=== PATIENT | female | born 1960 | race Caucasian/White ===

== ENCOUNTER 2018-09-25 14:25 | Emergency (ER) | payer BC ==
--- NOTE | 2018-09-25 15:13 | UC ---
Lower Extremity/Ankle HPI - HPI Summary HPI Summary: 57-year-old woman comes in with a chief complaint of right ankle pain. Earlier today she tripped and fell rolling her right ankle and inversion. Has pain in the lateral aspect and swelling. She has been able to weight-bear but weightbearing does make the pain worse. Rest and not wait bearing decreases the pain. She did take some ibuprofen prior to arrival. No complaint of any other injuries. - History of Current Complaint Chief Complaint: UCLowerExtremity Stated Complaint: ANKLE INJURY Time Seen by Provider: 09/25/18 14:44 Pain Intensity: 3 - Allergies/Home Medications Allergies/Adverse Reactions: Allergies Allergy/AdvReac Type Severity Reaction Status Date / Time pseudoephedrine Allergy Anaphylatic Verified 09/25/18 14:41 [From Sudafed] Shock Sulfa (Sulfonamide Allergy Anaphylatic Verified 09/25/18 14:41 Antibiotics) Shock Home Medications: Home Medications Ibuprofen 400 mg PO Q6HR PRN 09/25/18 [History Confirmed 09/25/18] Lisinopril 10 mg PO DAILY 09/25/18 [History Confirmed 09/25/18] Sertraline* [Zoloft*] 25 mg PO DAILY 09/25/18 [History Confirmed 09/25/18] PMH/Surg Hx/FS Hx/Imm Hx Previously Healthy: Yes Cardiovascular History: Hypertension - Surgical History Surgical History: Yes Surgery Procedure, Year, and Place: L ovary removed 2005 - Family History Known Family History: Positive: Non-Contributory - Social History Alcohol Use: Rare Substance Use Type: None Smoking Status (MU): Current Every Day Smoker Amount Used/How Often: 6-7 cigs/ day Review of Systems All Other Systems Reviewed And Are Negative: Yes Constitutional: Positive: Negative Skin: Positive: Negative Eyes: Positive: Negative ENT: Positive: Negative Respiratory: Positive: Negative Cardiovascular: Positive: Negative Gastrointestinal: Positive: Negative Motor: Positive: Negative Neurovascular: Positive: Negative Musculoskeletal: Positive: Other: - see hpi Neurological: Positive: Negative Psychological: Positive: Negative Is Patient Immunocompromised?: No Physical Exam Triage Information Reviewed: Yes Appearance: Well-Appearing, No Pain Distress, Well-Nourished Vital Signs: Initial Vital Signs Temp 98.1 F 09/25/18 14:43 Pulse 99 09/25/18 14:43 Resp 18 09/25/18 14:43 BP 171/81 05/13/19 14:43 Pulse Ox 99 09/25/18 14:43 Vital Signs Reviewed: Yes Eye Exam: Normal Eyes: Positive: Conjunctiva Clear Neck: Positive: Supple Respiratory: Positive: No respiratory distress Musculoskeletal: Positive: Other: - rt ankle swelling and tenderness lateral malleolus. foot nt. NL cap refill and DP pulse. NL sensation. Neurological Exam: Normal Neurological: Positive: Alert, Muscle Tone Normal Psychological: Positive: Age Appropriate Behavior Skin Exam: Normal Lower Extremity Course/Dx - Course Course Of Treatment: Patient Name: MARVA WHITEHEAD Medical Record#: [id number] Ordering Physician: Blaise Evans MD Acct.#: [id number] : 1960 Age: 57 Sex: F [facility]: [facility] Exam Date: 09/25/18 145 ADM Status: REG ER Order Information: ANKLE RIGHT 3+VWS Accession Number: [id number] CPT: 97513 Indication: Right ankle injury. 3 views of the right ankle demonstrates spiral fracture of the distal fibula. Ankle mortise is intact. IMPRESSION: Spiral fracture distal fibula. <Electronically signed by Rosaura Talley MD in OV> 09/25/18 1520 I discussed the x-ray report with the patient and her family. I splinted the patient with a sugar tong and posterior fiberglass splint. Patient also got crutches she can be nonweightbearing. Patient neurovascular intact after placement of the splint. Patient lives in [place] she's going there tomorrow morning so she'll be following up with orthopedics in her home. - Differential Dx/Diagnosis Provider Diagnosis: Closed right ankle fracture Discharge - Sign-Out/Discharge Documenting (check all that apply): Patient Departure All imaging exams completed and their final reports reviewed: Yes - Discharge Plan Condition: Stable Disposition: HOME Patient Education Materials: Ankle Fracture (ED), Crutch Instructions (ED) Referrals: [facility] [Provider Group] Additional Instructions: FOLLOW UP WITH YOUR ORTHOPEDIST IN THE NEXT 1-3 DAYS. GET RECHECKED SOONER IF YOUR CONDITION WORSENS OR ANY QUESTIONS OR CONCERNS. - Billing Disposition and Condition Condition: STABLE Disposition: Home
== END 2018-09-25 16:44 | disposition home or self-care (01) ==
LOC: UCEAST 14:25
DX: S82.831A Other fracture of upper and lower end of right fibula, initial encounter for closed fracture (principal); W01.0XXA Fall on same level from slipping, tripping and stumbling without subsequent striking against object, initial encounter; Y92.9 Unspecified place or not applicable; I10 Essential (primary) hypertension; Z88.2 Allergy status to sulfonamides; Z88.8 Allergy status to other drugs, medicaments and biological substances; F17.210 Nicotine dependence, cigarettes, uncomplicated
CPT/HCPCS: 99203; G0463